=== PATIENT | female | born 1980 | race Caucasian/White ===

== ENCOUNTER 2018-06-23 05:40 | Inpatient (IN) | payer BC ==
[~2018-06-23 05:40] MED LIST: Buffered Lidocaine 1% SYRIN* 1 ML/SYRINGE INTRADERM ONE
[2018-06-23] MEDS ORDERED: Lactated Ringers 1000 ML Bag* 1,000 ML IV SCH (06:00)
[2018-06-23] MEDS ORDERED: ceFAZolin 1 GM in Dextrose (*) 1 GM/50 ML BAG IVPB ONE (06:10)
[2018-06-23] MEDS ORDERED: ceFAZolin 2 GM in NS PREMIX(*) 2 GM/100 ML BAG IVPB ONE (06:10)
[2018-06-23] MEDS ORDERED: Heparin VIAL(*) 5000 UNITS/ML VIAL (FIVE THOUSAND) ONE (06:10)
[2018-06-23] MEDS ORDERED: Methylene Blue 0.5 %* 50 MG/10 ML AMP IV ONE (07:06)
[2018-06-23] MEDS ORDERED: Bupivacaine 0.25% W/EPI* 10 ML SDV ONE (07:06)
[2018-06-23] MEDS ORDERED: Propofol* 10 MG/ML 20 ML BTL ONE (07:31)
[2018-06-23] MEDS ORDERED: Rocuronium* 10 MG/ML VIAL ONE ×2 (07:31→08:27)
[2018-06-23] MEDS ORDERED: Midazolam* 1 MG/ML 5 ML VIAL (5 MG) ONE (07:31)
[2018-06-23] MEDS ORDERED: fentaNYL* 50 MCG/ML 5 ML VIAL (250 MCG VIAL) ONE (07:31)
[2018-06-23] MEDS ORDERED: Dexamethasone IV* 4 MG/ML 1 ML (4 MG) ONE (08:06)
[2018-06-23] MEDS ORDERED: DiMENhydriNATE IV* 50 MG/ML VIAL IV PUSH PRN (09:28)
[2018-06-23] MEDS ORDERED: HYDROmorphone INJ1* 1 MG/ML SYRINGE IV PRN (09:28)
[2018-06-23] MEDS ORDERED: Ondansetron INJ* 2 MG/ML VIAL IV PRN ×2 (09:28→10:47)
[2018-06-23] MEDS ORDERED: Naloxone* 0.4 MG/ML 1 ML VIAL IV PRN (09:28)
[2018-06-23] MEDS ORDERED: Scopolamine 1.5 mg* PATCH TRANSDERM PRN (09:28)
[2018-06-23] MEDS ORDERED: Ondansetron INJ* 2 MG/ML VIAL ONE (10:04)
[2018-06-23] MEDS ORDERED: Ketorolac INJ* 30 MG/ML 1 ML VIAL ONE (10:04)
[2018-06-23] MEDS ORDERED: Neostigmine Methylsulfate* 3 MG/3 ML SYRINGE ONE (10:15)
[2018-06-23] MEDS ORDERED: fentaNYL* 50 MCG/ML 2 ML VIAL (100 MCG VIAL) ONE (10:38)
[2018-06-23] MEDS ORDERED: DiMENhydriNATE IV* 50 MG/ML VIAL ONE (10:38)
--- NOTE | 2018-06-23 10:46 | OP ---
Operative Report - Blank - Operative Report Date of Operation: 06/23/18 Note: Brief Operative Note Preop Dx: morbid obesity and cholelithiasis Postop Dx: same Procedure: laparoscopic Loren en Y gastric bypass and cholecystectomy Anesthesia: GET Surgeon: Ottoniel Manufacturing Technologist: GREGORIA Anderson; ABDIRASHID Roa Fluids: 2 liters RL EBL: < 50 ml Specimen: gallbladder Drains: none Findings: dictated
[2018-06-23] MEDS ORDERED: Acetaminophen ADULT LIQ* 650 MG/20.3 ML UDC PO PRN (10:47)
[2018-06-23] MEDS: fentaNYL* 50 MCG/ML 2 ML VIAL (100 MCG VIAL) IV PRN ×3 (10:55→12:01)
[2018-06-23] MEDS ORDERED: HYDROmorphone INJ1* 1 MG/ML SYRINGE IV SLOW PU PRN (11:20)
[2018-06-23] MEDS ORDERED: Fluticasone NASAL SPRAY 50MCG* 16 gm SPRAY BTL BOTH NARES PRN (11:22)
[2018-06-23] MEDS: Lactated Ringers 1000 ML Bag* 1,000 ML IV SCH ×2 (13:01→21:05)
[2018-06-23] MEDS: Ketorolac INJ* 30 MG/ML 1 ML VIAL IV PRN (13:05)
[2018-06-23] MEDS: Heparin VIAL(*) 5000 UNITS/ML VIAL (FIVE THOUSAND) SUBCUT SCH ×2 (13:06→21:04)
[2018-06-23] MEDS: HYDROmorphone INJ1* 1 MG/ML SYRINGE IV SLOW PU PRN ×2 (16:49→20:52)
--- NOTE | 2018-06-23 20:41 | OP ---
CC: [facility]; Joshua Ruiz MD.* DATE OF OPERATION: 06/23/18 - ROOM #351 DATE OF : 80. SURGEON: Gordon Alcazar MD. FENCE MAKER: GREGORIA Martins. ANESTHESIOLOGIST: Adin Rhoades MD. ANESTHESIA: General endotracheal. PRE-OP DIAGNOSES: Clinically severe obesity and cholelithiasis. POST-OP DIAGNOSES: Clinically severe obesity and cholelithiasis. OPERATIVE PROCEDURE: Loren-en-Y gastric bypass and laparoscopic cholecystectomy. ESTIMATED BLOOD LOSS: Less than 50 mL. IV FLUIDS: 2 L crystalloids. SPECIMENS: Gallbladder. DRAINS: None. COMPLICATIONS: None. COUNTS: The instruments, needle and sponge counts were correct. DESCRIPTION OF PROCEDURE: The patient was brought to the operating room and placed on the table supine. Sequential compression devices were placed on both lower extremities. General anesthesia was administered. The patient was padded and positioned appropriately. She was prepped and draped in the usual sterile fashion. A time-out was performed. Local anesthetic was infiltrated into the skin and soft tissue prior to making each incision. Entry to the abdomen was through a left upper quadrant incision accommodating a 12-mm optical trocar. After accessing the peritoneal cavity, carbon dioxide was insufflated to a pressure of 15 mmHg. Under direct visualization, a 12-mm dilating trocar was placed in the supraumbilical position and also in the right upper quadrant laterally. 5-mm trocars were placed in the right upper quadrant medially and in the subxiphoid position. First, the patient was positioned in reverse Trendelenburg right side up. The gallbladder was identified. It was grasped with the fundus and retracted cephalad. The infundibulum was identified. The peritoneum investing the gallbladder was quite fatty. This was incised with cautery and dissected free from the gallbladder wall, which was able to be grasped to manipulate it. Then , dissection proceeded on the medial and lateral aspects of the gallbladder extending the peritoneal incision so that adequate dissection of the cystic duct and cystic artery could be achieved to obtain a critical view. After obtaining critical view, the cystic artery was divided with a LigaSure and the cystic duct was doubly clipped and divided. The LigaSure was then used to divide the gallbladder attachments to the liver staying in an avascular plane. Subsequently, gallbladder was placed into a retrieval bag and retrieved through the left upper quadrant port site. Next, the 5-mm trocar in the subxiphoid position was replaced with a Darling retractor, which was used to elevate the left lobe of the liver. Gastric anatomy appeared normal. There was a large epigastric fat pad that was dissected free from the left sylvester of the diaphragm. Perigastric dissection was undertaken on the lesser curve and division of blood vessels in this area was necessary in order to obtain access to the lesser sac. After entering the lesser sac, transverse firing of the EndoGIA stapler was performed with a atkins Tri-Staple cartridge. The remaining divisions of the stomach were retracted towards the angle of His, which had been dissected out and using the same atkins Tri-Staple cartridges. In this fashion, the gastric pouch approximately 15 to 30 mL volume was created. Staple lines were noted to be intact and hemostatic. Next, the omentum was mobilized from the lower abdomen and it was split down in its mid portion with the LigaSure. The transverse colon was retracted cephalad and the ligament of Treitz was identified. Jejunum was measured out approximately 50 cm and the loop was brought antecolic, ante-gastric and it was sutured to the left lateral staple line and the gastric pouch with interrupted 2-0 silk sutures. Next, the gastrojejunal anastomosis was created using the EndoGIA stapler with a 30 mm atkins cartridge. The common gastroenterotomy was run close with 3-0 PDS over a 34- Macedonian gastric lavage tube. The anastomosis was completed by dividing the omega loop to the left of the anastomosis with the EndoGIA stapler with a atkins cartridge. The anastomosis was then tested with Methylene blue dye solution instilled through the orogastric tube, which was placed across the anastomosis and distal occlusion was placed on the Loren limb. No leak was identified. The Methylene blue dye solution that had been instilled was aspirated from the lumen and the tube was removed. Next, the Loren limb was measured out for 75 cm and at this point, a functional end- to-side jejunojejunostomy was created with the EndoGIA stapler with a 16 mm atkins cartridge. Again, the common enterotomy was closed with a running 3-0 PDS running at to and fro and then tying it to itself. Lastly, the mesenteric defect at the jejunojejunostomy was closed with 3-0 silk in interrupted [id number] fashion. After assuring adequate hemostasis and proper orientation of the Loren limb, the ports were removed under direct visualization as was the Darling liver retractor and carbon dioxide was released. The skin incisions were closed with 4-0 Monocryl in subcuticular fashion and Steri-Strips applied. The patient tolerated the procedure well, was extubated uneventfully and she was transferred to the recovery room in stable condition. [id number]/[facility] #: [id number] [facility] HOSPITALVíctor
[2018-06-23] MEDS: Famotidine IV* 10 MG/ML 2 ML (20 mg) IV SLOW PU SCH (20:58)
[2018-06-24] MEDS: Ketorolac INJ* 30 MG/ML 1 ML VIAL IV PRN ×4 (00:06→20:27)
[2018-06-24] MEDS: Lactated Ringers 1000 ML Bag* 1,000 ML IV SCH (03:12)
[2018-06-24] MEDS: Heparin VIAL(*) 5000 UNITS/ML VIAL (FIVE THOUSAND) SUBCUT SCH ×3 (06:10→20:29)
[2018-06-24] MEDS: D5W 1/2 NS KCl 20 Meq 1000 ML* 1,000 ML IV SCH ×2 (08:56→16:17)
[2018-06-24] MEDS: Famotidine IV* 10 MG/ML 2 ML (20 mg) IV SLOW PU SCH ×2 (08:57→20:26)
[2018-06-24] MEDS: BuPROPion XL* 150 MG TAB.XL PO SCH (09:00)
[2018-06-24] MEDS: Escitalopram * 10 MG TAB PO SCH (09:00)
[2018-06-24] MEDS: HYDROcodone/ACET. 7.5/325 LIQ* 15 ML UDC PO PRN ×3 (09:05→21:33)
--- NOTE | 2018-06-24 22:25 | PN ---
Hospitalist Progress Note Date of Service: 06/24/18 Called by surgery for evaluate patient for right ear pain. Patient reports that right ear pain started this AM. Denies nasal congestion or sore throat. TM's pearly ybarra, no erythema, good cone of light noted. minimal wax noted to bilat ear canals. I would recommend Tylenol as needed for pain. We will sign off at this time if you need any further assistance please do not hesitate to contact our team.
[2018-06-25] MEDS: D5W 1/2 NS KCl 20 Meq 1000 ML* 1,000 ML IV SCH ×2 (00:21→08:09)
[2018-06-25] MEDS: Heparin VIAL(*) 5000 UNITS/ML VIAL (FIVE THOUSAND) SUBCUT SCH (05:50)
[2018-06-25] MEDS: HYDROcodone/ACET. 7.5/325 LIQ* 15 ML UDC PO PRN (07:18)
[2018-06-25] MEDS: Escitalopram * 10 MG TAB PO SCH (08:03)
[2018-06-25] MEDS: BuPROPion XL* 150 MG TAB.XL PO SCH (08:03)
[2018-06-25] MEDS: Famotidine IV* 10 MG/ML 2 ML (20 mg) IV SLOW PU SCH (08:05)
[2018-06-25 12:15] VITALS: BP 125/75
--- NOTE | 2018-06-25 12:48 | DS ---
DISCHARGE SUMMARY: DATE OF ADMISSION: 06/23/18 DATE OF DISCHARGE: 06/25/18 ATTENDING PHYSICIAN: Dr. Gordon Alcazar.* (DICTATED BY GREGORIA ALCY) HOSPITAL COURSE: Please refer to admission history and physical and operative note for details. The patient was taken to the operating room on 06/23/18 and underwent laparoscopic cholecystectomy and Loren-en-Y gastric bypass with with Dr. Alcazar. Surgery was uneventful. Postoperative course has been notable for a gradual improvement in pain and tolerance of bariatric clear liquids. She did have complaint of right ear pain yesterday, for which she was seen by the hospitalist without any significant findings. Her pain was better last night, but is present again this morning. She was seen this morning by Dr. Alcazar. Her dressings were removed. I did take a look at the right ear and this showed a relatively normal canal with no external tenderness and a normal-appearing TM. PHYSICAL EXAM: Vital signs on the morning of discharge, temperature 97.3, blood pressure 123/72, pulse 87, respirations 16, room air saturation 98%. IMPRESSION: Status post laparoscopic cholecystectomy and Loren-en-Y gastric bypass, doing well. The patient will resume her usual home medications with the exception of metformin, Victoza, and spironolactone, which she will hold for the present. She will contact [facility] for metabolic and bariatric surgery for an appointment for followup next week. She will follow the bariatric nutrition guidelines. We also discussed wound care and activity. She is discharged to home in good condition. GREGORIA LACY [id number]/[facility] #: [id number] MTDD
[2018-06-26] MEDS ORDERED: Scopolamine PATCH Remove* 1 NOTE MISC PATCH OFF ONE (09:29)
== END 2018-06-25 12:10 | disposition home or self-care (01) | DRG 403 ==
LOC: AA 05:40 → SSU 10:47
PROVIDERS: ADMIT Surgery; ATTEND Surgery
PROC: 0D164ZA Bypass Stomach to Jejunum, Percutaneous Endoscopic Approach (ICD-10-PCS; principal; 2018-06-23 07:30)
PROC: 0FT44ZZ Resection of Gallbladder, Percutaneous Endoscopic Approach (ICD-10-PCS; 2018-06-23 07:30)
DX: E66.01 Morbid (severe) obesity due to excess calories (principal); G47.33 Obstructive sleep apnea (adult) (pediatric); K80.20 Calculus of gallbladder without cholecystitis without obstruction; E78.2 Mixed hyperlipidemia; K21.9 Gastro-esophageal reflux disease without esophagitis; K29.70 Gastritis, unspecified, without bleeding; E28.2 Polycystic ovarian syndrome; F41.9 Anxiety disorder, unspecified; E11.9 Type 2 diabetes mellitus without complications; F32.9 Major depressive disorder, single episode, unspecified; H92.01 Otalgia, right ear; Z68.41 Body mass index [BMI] 40.0-44.9, adult; Z81.8 Family history of other mental and behavioral disorders; Z88.8 Allergy status to other drugs, medicaments and biological substances; Z80.3 Family history of malignant neoplasm of breast; Z80.0 Family history of malignant neoplasm of digestive organs; Z82.49 Family history of ischemic heart disease and other diseases of the circulatory system
CPT/HCPCS: 43644; 47562; 81025; 88304; A9270-GY; C1776; J0690; J1100; J1170; J1240; J1644; J1885; J2250; J2405; J2704; J2710; J3010

== ENCOUNTER 2019-01-07 11:09 | Observation (INO) | payer BC ==
[2019-01-07] MEDS ORDERED: Naproxen TAB* 250 MG ONE (11:51)
[2019-01-07] MEDS ORDERED: LORazepam TAB(*) 1 MG ONE (11:51)
[2019-01-07] MEDS ORDERED: Scopolamine 1.5 mg* PATCH ONE (11:51)
[2019-01-07] MEDS ORDERED: Ondansetron INJ* 2 MG/ML VIAL ONE ×2 (11:51→12:57)
[2019-01-07] MEDS ORDERED: oxyCODONE SR TAB(*) 10 MG TAB.SR ONE (11:51)
[2019-01-07] MEDS ORDERED: Clindamycin 900 MG/D5W BAG(*) 900 MG/50 ML BAG IVPB ONE (12:00)
[2019-01-07 12:23] LABS: BUN/Creatinine Ratio 18.5 (8-20); Blood Urea Nitrogen 10 mg/dL (6-24); CO2 Carbon Dioxide 26 mmol/L (22-32); Chloride 105 mmol/L (101-111); EGFR African American 152.9 (>60); EGFR Non-African American 126.3 (>60); Glucose 86 mg/dL (70-100); Sodium 136 mmol/L (135-145)
[2019-01-07 12:30] LABS: HCG Pregnancy < 0.60 mIU/mL
[2019-01-07] MEDS ORDERED: fentaNYL* 50 MCG/ML 2 ML VIAL (100 MCG VIAL) ONE ×3 (12:57→15:12)
[2019-01-07] MEDS ORDERED: nitroGLYCERIN DRIP* 25,000 MCG/250 ML BTL ONE (12:57)
[2019-01-07] MEDS ORDERED: Ketorolac INJ* 30 MG/ML 1 ML VIAL ONE ×2 (12:57→14:54)
[2019-01-07] MEDS ORDERED: Midazolam* 1 MG/ML 5 ML VIAL (5 MG) ONE (12:57)
[2019-01-07] MEDS ORDERED: Heparin 2 UNITS/ML IVPREMIX* 1,000 ML IV ONE (12:59)
[2019-01-07] MEDS ORDERED: Lidocaine 1% INJ* 10 MG/ML 30 ML SDV ONE (12:59)
[2019-01-07] MEDS ORDERED: Nitro 2% OINT* (Nitroglycerin) 1 INCH/PAK PAK ONE (13:05)
[2019-01-07] MEDS ORDERED: Heparin(*) 1000 UNIT/ML 10 ML VIAL CATH LAB IV ONE (13:10)
[2019-01-07] MEDS ORDERED: VERAPAMIL 2.5 MG/ML 2 ML VIAL ** 5 mg/2 ml ONE (13:10)
[2019-01-07] MEDS ORDERED: Iohexol 350 (CONTRAST) 200 ML MDV IV ONE (13:19)
[2019-01-07] MEDS ORDERED: HYDROmorphone INJ1* 1 MG/ML SYRINGE ONE (15:40)
[2019-01-07] MEDS ORDERED: Naloxone* 0.4 MG/ML 1 ML VIAL IV PUSH PRN (15:50)
[2019-01-07] MEDS ORDERED: HYDROmorphone PCA* 20 MG/20 ML PCA.SYRING PCA SCH (16:00)
[2019-01-07] MEDS ORDERED: PROCHLORPERAZINE INJ 5 MG/ML 2 ML VIAL IV PRN (16:00)
[2019-01-07] MEDS ORDERED: HYDROmorphone PCA* 20 MG/20 ML PCA.SYRING ONE (16:10)
[2019-01-07 18:47] LABS: Anion Gap 5 mmol/L (2-11)
--- NOTE | 2019-01-07 21:01 | PN ---
Progress Note - Progress Note Date of Service: 01/07/19 SOAP: Subjective: Pain rated at 4/10. Currently denies nausea or emesis. Has had ice water and broth. + void. Denies left wrist pain or subjective weakness. Objective: Selected Entries 01/07/19 20:22 Temperature 98.2 F Temperature Oral Source Pulse Rate 77 Respiratory 16 Rate Blood Pressure 150/96 (mmHg) Blood Pressure 114 Mean O2 Sat by Pulse 94 Oximetry Sitting up in bed talking with . NAD, Sleep, but AAO x3 Abd is soft, minimally tender to deep palpation at the suprapubic area Left radial pulse is 2+. Dressing is clean and dry. Left hand warm to touch. 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 Sensation intact at left radial/median/ulnar nerve distribution Assessment: 38 YOF s/p left radial arteriotomy uterine fibroid arterial embolization with pain and nausea controlled. Plan: 1. Routine post UFE IR protocol care. 2. Will see patient in AM.
--- NOTE | 2019-01-07 21:53 | HP ---
CC: Dr. Allan Perez * ADMISSION HISTORY AND PHYSICAL: DATE OF ADMISSION: 01/07/19 ATTENDING FOR THIS ADMISSION: Dr. Bisi Carlin.* (DICTATED BY BARBY BUITRAGO NP) CONSULTING PHYSICIAN: Dr. Allan Perez. CHIEF COMPLAINT: Uterine fibroids. HISTORY OF PRESENT ILLNESS: Ms. Tovar is a 38-year-old female patient with a history of uterine myoma. She presents to Dr. Perez today for elective uterine fibroid embolization. She is seen in the PACU postoperatively after her procedure this evening. We are requested by Dr. Perez to have the patient admitted for observation overnight for pain management, antiemetics, and fluid management during the postoperative period. PAST MEDICAL HISTORY: Significant for depression and obesity. PAST SURGICAL HISTORY: Significant for gastric bypass procedure in June of 2018, tonsillectomy in 2014. MEDICATIONS: At home include: 1. Wellbutrin 150 mg p.o. b.i.d. 2. Lexapro 20 mg daily. 3. control pills daily, which she stopped using 1 week ago. FAMILY HISTORY: Noncontributory. SOCIAL HISTORY: The patient does not smoke. Uses alcohol rarely. 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 Her is present at the time of her evaluation and is her healthcare proxy and primary point of contact in case of emergency. REVIEW OF SYSTEMS: The patient is complaining of some abdominal pain and some intermittent nausea. Her pain is diffuse and cramp-like in nature. She denies any fever or chills. No shortness of breath. No chest pain. No urinary complaints. No arthralgias or myalgias and no further constitutional complaints. PHYSICAL EXAMINATION GENERAL: A well-appearing female, in no acute distress. VITAL SIGNS: Blood pressure 143/66, heart rate 82, respiratory rate 14, O2 saturation 96% on room air with a temperature of 97.4. HEENT: The patient is atraumatic, normocephalic. PERRLA, nonicteric sclerae. Oral mucosa is somewhat dry. Tongue is midline. NECK: Neck is supple, nontender. No JVD noted. No carotid bruits auscultated. LUNGS: Clear bilaterally to auscultation with no wheezing, rhonchi or rales. CARDIOVASCULAR: S1, S2 present. No murmurs, gallops or rubs noted. Rate and rhythm are regular. ABDOMEN: Soft, obese, diffusely tender primarily in the lower quadrants. She has positive bowel sounds, hypoactive in nature. : Deferred. MUSCULOSKELETAL: There is no clubbing, no cyanosis, no edema. She has posterior distal pulses palpable. Full range of motion. Gross motor and sensation are intact. NEUROLOGIC: Grossly intact. Alert and oriented x3 with no focal deficits. PSYCHIATRIC: She is cooperative and appropriate. DIAGNOSTIC STUDIES/LAB DATA: Laboratories: Sodium 136, potassium not available, chloride 105, CO2 of 25, BUN 10, creatinine 0.54, GFR 126.3, glucose 86, calcium 9.0, beta quant is less than 0.60. Imaging: There was no imaging available. IMPRESSION AND PLAN: Ms. Tovar is a 38-year-old female patient with a history of uterine fibroids, who presents today for elective uterine fibroid embolization. DIAGNOSES: 1. Uterine fibroids, status post UFE. Plan of care as per Dr. Perez. She currently has pain control with hydromorphone PCI pump and also ketorolac as needed for her nausea. She can have Zofran 4 mg every 6 hours or prochlorperazine 5 mg IV q.6 hours. She should ambulate as tolerated and advance her diet as tolerated. She is currently tolerating sips of clears. 2. History of depression. We will continue her on her Wellbutrin and her Lexapro per her home schedule. 3. History of obesity. The patient has had gastric bypass earlier this year. We will continue to monitor her labs. She does not have a CBC current today. We will check her H and H in the morning. She may be prone to anemia. We will check her labs in the morning. 4. Diet: Regular diet as tolerated. 5. DVT prophylaxis: SCDs and ambulate as tolerated. She is low risk. 6. Disposition: The patient is admitted to observation overnight. The rest of the patient's course will be determined by further diagnostics, laboratories, and any other input from other providers as warranted during this admission. TIME SPENT: Forty five minutes on admission planning, 50% of which is spent face- to-face with the patient and her developing admission plan of care and evaluating the patient physically. BARBY BUITRAGO, MAMMOGRAPHY SUPERVISOR [id number]/[facility] #: [id number] JUSTIN
[2019-01-07] MEDS: Ondansetron INJ* 2 MG/ML VIAL IV SCH (23:29)
[2019-01-07] MEDS: Ketorolac INJ* 15 MG/ML 1 ML VIAL IV PUSH SCH (23:29)
[2019-01-07] MEDS: buPROPion SR TAB.SR* 150 MG PO SCH (23:30)
[2019-01-08] MEDS: Ketorolac INJ* 15 MG/ML 1 ML VIAL IV PUSH SCH ×2 (02:46→08:47)
[2019-01-08] MEDS: Ondansetron INJ* 2 MG/ML VIAL IV SCH ×2 (02:47→08:46)
[2019-01-08 08:33] LABS: Hematocrit 37 % (35-47); Mean Corpuscular HGB Conc 33 g/dL (31-36); Mean Corpuscular Hemoglobin 28 pg (27-31); Mean Corpuscular Volume 85 fL (80-97); Mean Platelet Volume 7.4 fL (7.4-10.4); Platelet Count 333 10^3/uL (150-450); Red Blood Count 4.32 10^6 /uL (3.70-4.87); Red Cell Distribution Width 13 % (10-15)
[2019-01-08] MEDS: buPROPion SR TAB.SR* 150 MG PO SCH (08:47)
[2019-01-08 08:52] LABS: BUN/Creatinine Ratio 14.8 (8-20); Calcium 8.9 mg/dL (8.6-10.3); EGFR African American 152.9 (>60); EGFR Non-African American 126.3 (>60); Potassium 3.8 mmol/L (3.5-5.0)
[2019-01-08] MEDS ORDERED: Polyethylene Glycol 3350* 17 GM PACKET PO SCH (09:00)
[2019-01-08] MEDS ORDERED: Escitalopram * 20 MG TABLET PO SCH (09:00)
--- NOTE | 2019-01-08 09:16 | PN ---
Progress Note - Progress Note Date of Service: 01/08/19 SOAP: Subjective: 10 pain feels like "menstrual cramping". No nausea or emesis. Has had some solid food and drinking water and juice. +void. Ambulating to toilet independently Objective: Selected Entries 01/08/19 08:37 Temperature 98.9 F Temperature Oral Source Pulse Rate 75 Respiratory 17 Rate Blood Pressure 141/80 (mmHg) Blood Pressure 100 Mean O2 Sat by Pulse 98 Oximetry Patient on Room Yes Air Sitting up in bed typing on phone NAD, AAO x3 Abd is soft, minimally tender to deep palpation at the suprapubic area Left radial pulse is 2+. Dressing is clean and dry. Left hand warm to touch. 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 Sensation intact at left radial/median/ulnar nerve distribution Assessment: 38 YOF POD #1 s/p left radial arteriotomy uterine fibroid arterial embolization with pain and nausea controlled. Top normal WBC is expected post UFE. Plan: 1. Transition IV to PO meds. 2. Ambulation around unit with assistance. 3. Anticipate DC. 4. Outpatient medications will include: Toradol 10 mg PO Q 6 hours x 3 days (Dispense #15 with one refill) AFTER Toradol is complete: Ibuprofen 400 mg PO Q 6 hours OR Naprosyn 225 mg PO Q 8 hours for 3-5 days (do not take both) [place] 5/325, take 1 or 2 tablets by mouth Q 6 hours PRN breakthrough pain ( Dispense #40) Zofran 4 mg PO Q 6 hours x 7 days (Dispense #30 with one refill) Scopolamine 1.5 mg transdermal to mastoid process. On 01/10/19 at 900 AM, remove current patch, replace with new patch and wear x 3 days. Drink one cup of laxative tea daily (For example, "Smooth Move") for one week.
[2019-01-08] MEDS ORDERED: HYDROcodone/ACETAMIN 5-325 MG* 1 TAB PO PRN ×2 (09:23→09:34)
[2019-01-08] MEDS ORDERED: Ondansetron TAB* 4 MG PO SCH (10:00)
[2019-01-08] MEDS ORDERED: Ketorolac TAB * 10 MG TAB PO SCH (10:00)
[2019-01-08 11:24] VITALS: BP 144/89
--- NOTE | 2019-01-10 22:02 | DS ---
CC: Dr. Allan Perez * DISCHARGE SUMMARY: DATE OF ADMISSION: 01/07/19. DATE OF DISCHARGE: 01/08/19. ATTENDING PHYSICIAN FOR THIS ADMISSION: Dr. Allan Perez. MY ATTENDING FOR TODAY: Dr. Bisi Carlin.* (DICTATED BY BARBY BUITRAGO NP) HOSPITAL COURSE: Please refer to my admitting H and P on 01/07/19, but in short , Ms. Tovar is a 38-year-old female with a history of uterine fibroids that presented for elective uterine fibroid embolization with Dr. Allan Perez. She was admitted post procedure for pain management, IV fluids and observation. She had an eventful post-procedure course. The patient was quickly weaned off of her NET LEAD DEVELOPER pump. She had some mild abdominal cramping and some nausea which were well controlled with oral medication after transitioning off of Dilaudid NET LEAD DEVELOPER. She also was transitioned from IV Zofran to oral Zofran. On the day of discharge, she is ambulatory and with no complaints. She was cleared for discharge by Dr. Perez on 01/08/19 for discharge to home with outpatient followup. DISCHARGE DIAGNOSES: 1. Status post uterine fibroid embolization. 2. History of depression. MEDICATIONS FOR DISCHARGE: Include: 1. Wellbutrin 150 mg p.o. b.i.d. 2. Lexapro 20 mg p.o. daily. 3. She may restart her control pills when she is cleared by Dr. Perez to do so. New pain medications for discharge include: 1. [place] 5/325 mg 1 to 2 tablets p.o. q.6 hours as needed for pain. 2. Toradol 10 mg p.o. q.6 hours as needed for pain. 3. Zofran 4 mg p.o. q.6 hours as needed for nausea. After completing Ketorolac, she can switch to ibuprofen 400 mg p.o. q.6 hours as needed for pain. The patient may also restart her daily vitamins. REVIEW OF SYSTEMS ON DAY OF DISCHARGE: The patient denies any fever, fatigue or chills. Some mild intermittent nausea, some mild abdominal cramping only. Denies any shortness of breath, or chest pain. No urinary complaints. No arthralgias or myalgias and no further constitutional complaints. PHYSICAL EXAMINATION: Reveals a well-appearing female in no acute distress. Vital Signs: Blood pressure 144/89, heart rate 91, respiratory rate 16, and O2 saturation 97% on room air with a temperature of 97.5. HEENT: The patient is atraumatic and normocephalic. PERRLA. Nonicteric sclerae. Oral mucosa is moist. Tongue is midline. Neck: Supple, nontender. No JVD noted. No thyromegaly appreciated. Cardiovascular: S1, S2 present. No murmurs, gallops , or rubs. Rate and rhythm are regular. Lungs are clear bilaterally to auscultation with no adventitious breath sounds. Abdomen is soft, diffusely tender, primarily on the suprapubic region and the right lower quadrant. She has positive bowel sounds in all 4 quadrants. is deferred. Musculoskeletal: There is no clubbing, no cyanosis, no edema. She has +2 distal pulses palpable. She has full range of motion. Her left upper extremity radial calf site is clean, dry and intact. No erythema or ecchymosis or bleeding noted. She has good cap refill which is brisk on the distal to the puncture site. Neurological: She is grossly intact with no focal deficits. Psychiatric: She is cooperative and appropriate. LABORATORY DATA: WBCs 12.0, RBCs 4.32, hemoglobin 12.0, hematocrit 37, platelets 333,000. Sodium 136, potassium 3.8, BUN 8, creatinine 0.54, glucose 92. DISPOSITION: The patient was discharged to home in the care of her in stable condition. All questions were answered. The patient stated understanding of her discharge instructions, medications, and followups. FOLLOWUPS: The patient was instructed to follow up with Dr. Allan Perez in 6 weeks. She may follow up with her primary care provider on an as needed basis, who is Dr. Joshua Ruiz. ACTIVITY: Progress activity as tolerated. DIET: May resume regular diet as tolerated. The patient was discharged in stable condition. TIME SPENT: Thirty five minutes on discharge planning. BARBY BUITRAGO NP [id number]/[facility] #: [id number] [facility] HOSPITALVíctor
== END 2019-01-08 14:35 | disposition home or self-care (01) ==
LOC: CHICATH 11:09 → SSU 18:26
PROVIDERS: ADMIT Hospitalist; ATTEND Hospitalist
DX: N92.4 Excessive bleeding in the premenopausal period (principal); D25.9 Leiomyoma of uterus, unspecified; F32.9 Major depressive disorder, single episode, unspecified; Z79.899 Other long term (current) drug therapy; Z98.84 Bariatric surgery status
CPT/HCPCS: 36415; 37243; 76937; 80048; 84702; 85027; 96374; 96375; 96376; 99156; 99157; A9270-GY; C1769; C1884; C1887; G0378; J0780; J1170; J1644; J1885; J2250; J2405; J3010